=== PATIENT | female | born 1965 | race Caucasian/White ===

== ENCOUNTER 2017-12-26 19:47 | Emergency (ER) | payer OTHER ==
[~2017-12-26] VITALS: Ht 175.3 cm; Wt 113.4 kg
[2017-12-26] MEDS ORDERED: DIPHTH/TETANUS/ACEL. PERTUSSIS 0.5 ML SYR IM ONE (20:15)
[2017-12-26] MEDS ORDERED: IBUPROFEN 600 MG TAB PO STA (21:39)
[2017-12-26] MEDS ORDERED: ONDANSETRON HCL 4 MG ORAL DISINTEGRATING TAB PO ONE (21:45)
[2017-12-26] MEDS ORDERED: ACETAMINOPHEN 325 MG TAB PO ONE (21:45)
--- NOTE | 2017-12-26 22:23 | Diagnostic Imaging Report ---
FOOT 3 VIEW RT - HOPD, KNEE 4VW LT - HOPD Comparison: None Clinical history: Pain of the left knee and right foot after falling Findings: Right foot: No acute fracture or dislocation. Incidental plantar calcaneal spur. Left knee: Mild tricompartmental spurring. No acute fracture or dislocation. No joint effusion. Impression: No acute bony abnormality Signed by: Dr Vidhya Mendzoa MD on 12/26/2017 10:19 PM
--- NOTE | 2017-12-26 22:24 | Diagnostic Imaging Report ---
EXAMINATION: Head CT without contrast. HISTORY:Pain, after tripping and hitting head. COMPARISON:None. TECHNIQUE: Multidetector axial images were obtained from the foramen magnum to the vertex without contrast. The images were reconstructed using brain and bone algorithms. Thin section brain images were reformatted into coronal and sagittal planes. Dose modulation, iterative reconstruction, and/or weight based adjustment of the mA/kV was utilized to reduce the radiation dose to as low as reasonably achievable. Intravenous contrast: None IMAGE QUALITY: Suboptimal evaluation particularly of the skull base and posterior fossa structures due to dental amalgam and streak artifacts. FINDINGS: Skull/scalp: No lytic or blastic. lesions. No surgical changes. Parenchyma: Suboptimal evaluation particularly of the skull base and posterior fossa due to streak artifacts, despite the limitation no gross acute intracranial hemorrhage, mass or acute major vascular territorial infarct. Arteries: No density suggestive of thrombosis. Dural sinuses: No abnormal density suggestive of thrombosis. Ventricles: No hydrocephalus or displacement. Extra-axial spaces: No abnormal density. Brain volume: Mild generalized cerebral volume loss. Craniocervical junction: No mass, Chiari malformation, or basilar invagination. Sella: No mass. Paranasal/mastoid sinuses: Imaged portions unremarkable. IMPRESSION: Suboptimal evaluation particularly of the skull base and posterior fossa structures due to dental amalgam and streak artifacts, despite the limitations, no gross acute intracranial abnormality. Findings were informed to ER physician Dr. Ardon by phone at 9:30 PM on 12/26/2017. Signed by: Dr. Milka Tracey M.D. on 12/26/2017 10:20 PM
--- NOTE | 2017-12-26 22:27 | Diagnostic Imaging Report ---
History: Pain, status post fall. Comparison studies: None Technique: Axial images were obtained through the cervical region.. Coronal and sagittal images reconstructed from the axial data. Dose modulation, iterative reconstruction, and/or weight based adjustment of the mA/kV was utilized to reduce the radiation dose to as low as reasonably achievable. Intravenous contrast: None Findings: Fractures: None. Soft tissue injuries: None. Atlantoaxial articulation: Intact. Alignment: Normal lordosis. No scoliosis. Cervicomedullary junction: No abnormalities. The foramen magnum is patent. Soft tissues: No abnormalities. Vertebrae: No fractures, infection or neoplasm. Degenerative changes: None. IMPRESSION: 1. No acute cervical spine abnormalities. 2. Ligament, spinal cord and or vascular abnormalities cannot be excluded on the basis of this examination. 3. Findings informed to ER physician Dr. Ardon by phone at 9:30 PM on 12/26/2017. Signed by: Dr. Milka Tracey M.D. on 12/26/2017 10:23 PM
== END 2017-12-26 22:51 | disposition home or self-care (01) ==
LOC: FSED 19:47
DX: S01.01XA Laceration without foreign body of scalp, initial encounter (principal); S16.1XXA Strain of muscle, fascia and tendon at neck level, initial encounter; S80.212A Abrasion, left knee, initial encounter; S80.211A Abrasion, right knee, initial encounter; W01.0XXA Fall on same level from slipping, tripping and stumbling without subsequent striking against object, initial encounter; Y93.01 Activity, walking, marching and hiking; Y92.511 Restaurant or cafe as the place of occurrence of the external cause
CPT/HCPCS: 70450; 72125; 99283

== ENCOUNTER 2018-07-26 19:58 | Emergency (ER) | payer OTHER ==
[~2018-07-26] VITALS: Ht 175.3 cm; Wt 113.4 kg
--- OUTSIDE RECORDS SUMMARY | 2018-07-26 20:01 | XMS REPORT | Summary of Care ---
Author Author [facility] - [facility] Address Unknown Phone Unavailable Encounter JAMIA Vaz(FIN) [id number] Date(s): 10/06/17 - 10/06/17 [facility] [address] [place] [address]- Discharge Disposition: Home or Self Care Attending Physician: Leandro Ross MD Vital Signs No data available for this section Problem List Condition Effective Dates Status Health Status Informant DM (diabetes Resolved mellitus)(Confirmed) Asthma(Confirmed) Resolved HTN Resolved (hypertension)(Confi rmed) Allergies, Adverse Reactions, Alerts Substance Reaction Severity Status sulfa drugs Active tetracyclines Active codeine Active tetracycline Active erythromycin Active penicillin Active morphine Active aspirin Active Levaquin Active Vicodin Active codeine sulfate Active Medications No data available for this section Results No data available for this section Immunizations No data available for this section Procedures Procedure Date Related Diagnosis Body Site Status Caesarean section Completed section Completed Fine needle aspiration biopsy1 Completed Laparoscopic sleeve gastrectomy Completed Stapling of stomach Completed Tonsillectomy Completed Tonsillectomy and adenoidectomy Completed 1pt states since she has had this done she has difficulty swallowing at times Social History Social History Type Response Substance Abuse Use: None. Alcohol Never Smoking Status Never smoker; Exposure to Tobacco Smoke None; Cigarette Smoking Last 365 Days No; Reg Smoking Cessation Counseling No entered on: 09/17/17 Assessment and Plan No data available for this section
--- OUTSIDE RECORDS SUMMARY | 2018-07-26 20:01 | XMS REPORT ---
[facility] Address Unknown Phone Unavailable Care Team Providers Care Typing Office Worker Name Role Phone Zeke ARDON Unavailable Unavailable Problems This patient has no known problems. Allergies, Adverse Reactions, Alerts This patient has no known allergies or adverse reactions. Medications This patient has no known medications. Results Test Description Test Time Test Comments Text Results Atomic Results Result Comments CT C-SPINE W/O - HOPD 2017-12-26 22:20:00 [place] [address] Patient Name: ADWOA CLAUDIO MR #: [id number] : 1965 Age/Sex: 52/F Req #: [id number] Adm Physician: Ordered by: CARY ARDON MD Report #: [id number] Location: [facility] Room/Bed: Procedure: [id number] HOPD/CT C-SPINE W/O - HOPD Exam Date: 12/26/17 Exam Time: 2049 REPORT STATUS: Signed History: Pain, status post fall. Comparison studies: None Technique: Axial images were obtained through the cervical region.. Coronal and sagittal images reconstructed from the axial data. Dose modulation, iterative reconstruction, and/or weight based adjustment of the mA/kV was utilized to reduce the radiation dose to as low as reasonably achievable. Intravenous contrast: None Findings: Fractures: None. Soft tissue injuries: None. Atlantoaxial articulation: Intact. Alignment: Normal lordosis. No scoliosis. Cervicomedullary junction: No abnormalities. The foramen magnum is patent. Soft tissues: No abnormalities. Vertebrae: No fractures, infection or neoplasm. Degenerative changes: None. IMPRESSION: 1. No acute cervical spine abnormalities. 2. Ligament, spinal cord and or vascular abnormalities cannot be excluded on the basis of this examination. 3. Findings informed to ER physician Dr. Ardon by phone at 9:30 PM on 12/26/2017. Signed by: Dr. Milka Tracey M.D. on 12/26/2017 10:23 PM Dictated By: MILKA TRACEY MD 22 Transcribed By: ALICIA on 12/26/172222 COPY TO: CARY ARDON MD KNEE 4VW LT - HOPD 2017-12-26 22:17:00 [place] [address] Patient Name: ADWOA CLAUDIO MR #: [id number] : 1965 Age/Sex: 52/F Req #: [id number] Adm Physician: Ordered by: CARY ARDON MD Report #: [id number] Location: [facility] Room/Bed: Procedure: [id number] HOPD/KNEE 4VW LT - HOPD Exam Date: 12/26/17 Exam Time: 2049 REPORT STATUS: Signed FOOT 3 VIEW RT - HOPD, KNEE 4VW LT - HOPD Comparison: None Clinical history: Pain of the left knee and right foot after falling Findings: Right foot: No acute fracture or dislocation. Incidental plantar calcaneal spur. Left knee: Mild tricompartmental spurring. No acute fracture or dislocation. No joint effusion. Impression: No acute bony abnormality Signed by: Dr Jose Roberto Mendoza MD on 12/26/2017 10:19 PM Dictated By: JOSE ROBERTO MENDOZA MD 18 Transcribed By: ALICIA on 12/26/172218 COPY TO: CARY ARDON MD FOOT 3 VIEW RT - HOPD 2017-12-26 22:17:00 [place] [address] Patient Name: ADWOA CLAUDIO MR #: [id number] : 1965 Age/Sex: 52/F Req #: [id number] Adm Physician: Ordered by: CARY ARDON MD Report #: [id number] Location: [facility] Room/Bed: Procedure: [id number] HOPD/FOOT 3 VIEW RT - HOPD Exam Date: 12/26/17 Exam Time: 2049 REPORT STATUS: Signed FOOT 3 VIEW RT - HOPD, KNEE 4VW LT - HOPD Comparison: None Clinical history: Pain of the left knee and right foot after falling Findings: Right foot: No acute fracture or dislocation. Incidental plantar calcaneal spur. Left knee: Mild tricompartmental spurring. No acute fracture or dislocation. No joint effusion. Impression: No acute bony abnormality Signed by: Dr Jose Roberto Mendoza MD on 12/26/2017 10:19 PM Dictated By: JOSE ROBERTO MENDOZA MD 18 Transcribed By: ALICIA on 12/26/172218 COPY TO: CARY ARDON MD CT BRAIN WO-HOPD 2017-12-26 22:16:00 [facility] [address] [place] [address] Patient Name: ADWOA CLAUDIO MR #: [id number] : 1965 [facility]: 52[id number] Req #: [id number] Adm Physician: Ordered by: CARY ARDON MD Report #: [id number] Location: [facility] Room/Bed: Procedure: [id number] HOPD/CT BRAIN WO-HOPD Exam Date: 12/26/17 Exam Time: 2049 REPORT STATUS: Signed EXAMINATION: Head CT without contrast. HISTORY:Pain, after tripping and hitting head. COMPARISON:None. TECHNIQUE: Multidetector axial images were obtained from the foramen magnum to the vertex without contrast. The images were reconstructed using brain and bone algorithms. Thin section brain images were reformatted into coronal and sagittal planes. Dose modulation, iterative reconstruction, and/or weight based adjustment of the mA/kV was utilized to reduce the radiation dose to as low as reasonably achievable. Intravenous contrast: None IMAGE QUALITY: Suboptimal evaluation particularly of the skull base and posterior fossa structures due to dental amalgam and streak artifacts. FINDINGS: Skull/scalp: No lytic or blastic. lesions. No surgical changes. Parenchyma: Suboptimal evaluation particularly of the skull base and posterior fossa due to streak artifacts, despite the limitation no gross acute intracranial hemorrhage, mass or acute major vascular territorial infarct. Arteries: No density suggestive of thrombosis. Dural sinuses: No abnormal density suggestive of thrombosis. Ventricles: No hydrocephalus or displacement. Extra-axial spaces: No abnormal density. Brain volume: Mild generalized cerebral volume loss. Craniocervical junction: No mass, Chiari malformation, or basilar invagination. Sella: No mass. Paranasal/mastoid sinuses: Imaged portions unremarkable. IMPRESSION: Suboptimal evaluation particularly of the skull base and posterior fossa structures due to dental amalgam and streak artifacts, despite the limitations, no gross acute intracranial abnormality. Findings were informed to ER physician Dr. Ardon by phone at 9:30 PM on 12/26/2017. Signed by: Dr. Milka Tracey M.D. on 12/26/2017 10:20 PM Dictated By: MILKA TRACEY MD 19 Transcribed By: ALICIA on 12/26/172219 COPY TO: CARY ARDON MD
--- OUTSIDE RECORDS SUMMARY | 2018-07-26 20:01 | XMS REPORT | Summary of Care ---
Author Author [facility] Organization [facility] Address Unknown Phone Unavailable Encounter JAMIA Vaz(TOMASZ) [id number] Date(s): 06/02/18 - 06/02/18 [facility] [address] [facility] [address] [place] [address] [facility] [phone] Discharge Disposition: Home or Self Care Attending Physician: Manohar Grijalva MD Referring Physician: Manohar Grijalva MD Vital Signs Most recent to 1 oldest [Reference Range]: Height 175.26 cm (06/02/18 12:02 PM) Blood Pressure 122/79 mmHg [90-140/60-90 mmHg] (06/02/18 12:02 PM) Respiratory Rate 16 BRMIN [14-20 BRMIN] (06/02/18 12:02 PM) Peripheral Pulse 86 bpm Rate [60-100 bpm] (06/02/18 12:02 PM) Weight 113.636 kg (06/02/18 12:02 PM) Body Mass Index 37 m2 (06/02/18 12:02 PM) Problem List Condition Effective Dates Status Health Status Informant Hernia of abdominal Active wall(Confirmed) HLD Active (hyperlipidemia)(Con firmed) Asthma(Confirmed) Active HTN Active (hypertension)(Confi rmed) Hypothyroidism(Confi Active rmed) Elevated Active LFTs(Confirmed) Morbid Active obesity(Confirmed) Nausea & Active vomiting(Confirmed) Papillary thyroid Active carcinoma(Confirmed) DM (diabetes Active mellitus), type 2(Confirmed) Allergies, Adverse Reactions, Alerts Substance Reaction Severity Status sulfa drugs Active tetracyclines Active codeine Active tetracycline Active erythromycin Active penicillin Active morphine Active aspirin Active Levaquin Active Vicodin Active codeine sulfate Active Medications No Known Medications Results ELECTROLYTES Most recent to 1 oldest [Reference Range]: Sodium Lvl [135-145 136 mEq/L mEq/L] (06/02/18 1:30 PM) Potassium Lvl 3.9 mEq/L [3.5-5.1 mEq/L] (06/02/18 1:30 PM) Chloride Lvl [95-109 100 mEq/L mEq/L] (06/02/18 1:30 PM) CO2 [24-32 mEq/L] 26 mEq/L (06/02/18 1:30 PM) AGAP [10.0-20.0 13.9 mEq/L mEq/L] (06/02/18 1:30 PM) CHEM PANEL Most recent to 1 oldest [Reference Range]: Creatinine Lvl 0.64 mg/dL [0.50-1.40 mg/dL] (06/02/18 1:30 PM) eGFR 105 mL/min/1.73m2 1 *NA* (06/02/18 1:30 PM) BUN [7-22 mg/dL] 16 mg/dL (06/02/18 1:30 PM) Glucose Lvl [70-99 123 mg/dL mg/dL] *HI* (06/02/18 1:30 PM) Total Protein 8.6 g/dL [6.4-8.4 g/dL] *HI* (06/02/18 1:30 PM) Albumin Lvl [3.5-5.0 4.0 g/dL g/dL] (06/02/18 1:30 PM) Globulin [2.7-4.2 4.6 g/dL g/dL] *HI* (06/02/18 1:30 PM) A/G Ratio [0.7-1.6] 0.9 (06/02/18 1:30 PM) Calcium Lvl 9.7 mg/dL [8.5-10.5 mg/dL] (06/02/18 1:30 PM) ALT [0-65 unit/L] 77 unit/L *HI* (06/02/18 1:30 PM) AST [0-37 unit/L] 57 unit/L *HI* (06/02/18 1:30 PM) Alk Phos [39-136 109 unit/L unit/L] (06/02/18 1:30 PM) Bili Total [0.2-1.3 0.4 mg/dL mg/dL] (06/02/18 1:30 PM) Bili Direct [0.0-0.3 0.1 mg/dL mg/dL] (06/02/18 1:30 PM) Bili Indirect 0.3 mg/dL [0.0-1.0 mg/dL] (06/02/18 1:30 PM) 1Result Comment: The eGFR is calculated using the CKD-EPI formula. In most young, healthy individuals the eGFR will be >90 mL/min/1.73m2. The eGFR declines with age. An eGFR of 60-89 may be normal in some populations, particularly the elderly, for whom the CKD-EPI formula has not been extensively validated. Use of the eGFR is not recommended in the following populations: Individuals with unstable creatinine concentrations, including patients and those with serious co-morbid conditions. Patients with extremes in muscle mass or diet. The data above are obtained from the National Kidney Disease Education Program ( NKDEP) which additionally recommends that when the eGFR is used in patients with extremes of body mass index for purposes of drug dosing, the eGFR should be mul tiplied by the estimated BMI. HEMATOLOGY Most recent to 1 oldest [Reference Range]: WBC [3.7-10.4 K/CMM] 9.0 K/CMM (06/02/18 1:30 PM) RBC [4.20-5.40 5.25 M/CMM M/CMM] (06/02/18 1:30 PM) Hgb [12.0-16.0 g/dL] 14.5 g/dL (06/02/18 1:30 PM) Hct [36.0-48.0 %] 44.1 % (06/02/18 1:30 PM) MCV [80.0-98.0 fL] 84.0 fL (06/02/18 1:30 PM) MCH [27.0-31.0 pg] 27.7 pg (06/02/18 1:30 PM) MCHC [32.0-36.0 32.9 g/dL g/dL] (06/02/18 1:30 PM) RDW [11.5-14.5 %] 15.1 % *HI* (06/02/18 1:30 PM) MPV [7.4-10.4 fL] 8.9 fL (06/02/18 1:30 PM) Platelet [133-450 270 K/CMM K/CMM] (06/02/18 1:30 PM) Segs [45.0-75.0 %] 59.1 % (06/02/18 1:30 PM) Lymphocytes 35.1 % [20.0-40.0 %] (06/02/18 1:30 PM) Monocytes [2.0-12.0 4.1 % %] (06/02/18 1:30 PM) Eosinophils [0.0-4.0 1.1 % %] (06/02/18 1:30 PM) Basophils [0.0-1.0 0.6 % %] (06/02/18 1:30 PM) Neutrophils # 5.3 K/CMM [1.5-8.1 K/CMM] (06/02/18 1:30 PM) Lymphocytes # 3.2 K/CMM [1.0-5.5 K/CMM] (06/02/18 1:30 PM) Monocytes # [0.0-0.8 0.4 K/CMM K/CMM] (06/02/18 1:30 PM) Eosinophils # 0.1 K/CMM [0.0-0.5 K/CMM] (06/02/18 1:30 PM) Basophils # [0.0-0.2 0.1 K/CMM K/CMM] (06/02/18 1:30 PM) PT [12.0-14.7 12.9 seconds seconds] (06/02/18 1:30 PM) INR [0.85-1.17] 0.99 (06/02/18 1:30 PM) TUMOR MARKERS Most recent to 1 oldest [Reference Range]: AFP TM [0.0-11.0 2.6 ng/mL ng/mL] (06/02/18 1:30 PM) Immunizations No data available for this section [...] Reg Smoking Cessation Counseling No entered on: 06/02/18 Assessment and Plan No data available for this section
--- OUTSIDE RECORDS SUMMARY | 2018-07-26 20:01 | XMS REPORT | Continuity of Care Document ---
Author Author Derrek corbett [facility] Interface Address Unknown Phone Unavailable Problems Problem Status Onset Date Classification Date Reported Comments Source OUTPATIENT/TRANSJUGULAR LIVER BX WITH HV Active 03/16/2018 [facility] BDDC/ NAUSEA VOMITING COLORECTAL CANCER Active 03/03/2018 [facility] NEW PT CONSULT Active 02/04/2018 [facility] C73 - MALIGNANT NEOPLASM OF THYROID Active 10/01/2017 ADAMA Corbett THYROID NODULE Active 08/04/2017 [facility] DM (<span ID="[id number]">Confirmed</span>) Resolved Problem 10/09/2017 ADAMA Jones Hernia [facility] abdominal wall [facility] (<span ID="[id number]">Confirmed</span>) [facility] Problem 07/12/2018 ADAMA Jones ADAMA Corbett HTN (<span ID="[id number]">Confirmed</span>) Active Problem 07/12/2018 ADAMA Jones ADAMA Corbett Hypothy[facility] Morbid obesity [facility] Nausea & vomiting Active Problem 07/12[facility] Papillary thyroid carcinoma [facility] , type 2(<span ID="[id number]">Confirmed</span>) Active Problem 07/12[facility]2018 [facility] (<span ID="[id number]">Confirmed</span>) Active Problem [facility]/04[facility] Medications Medication Details Route Status Patient Instructions Ordering Provider Order Date Source Allergies, Adverse Reactions, Alerts Substance Category Reaction Severity Reaction type Status Date Reported Comments Source Tetracyclines Unknown Allergy to Substance Active 12/26/2017 [facility] Sulfa (Sulfonamide Antibiotics) Unknown Allergy to Substance Active 12/26/2017 [facility] Morphine Unknown Allergy to Substance Active 12/26/2017 [facility] Codeine Unknown Allergy to Substance Active 12/26/2017 [facility] Erythromycin base Unknown Allergy to Substance Active 12/26/2017 [facility] Levofloxacin Unknown Allergy to Substance Active 12/26/2017 [facility] sulfa drugs Assertion Drug allergy Active [facility] tetracyclines Assertion Drug allergy Active [facility] codeine Assertion Drug allergy Active [facility] tetracycline Assertion Drug allergy Active [facility] [place] erythromycin Assertion Drug allergy Active [facility] [place] penicillin Assertion Drug allergy Active [facility] morphine Assertion Drug allergy Active [facility] aspirin Assertion Drug allergy Active [facility] [place] Levaquin Assertion Drug allergy Active [facility] [place] Vicodin Assertion Drug allergy Active [facility] [place] codeine sulfate Assertion Drug allergy Active [facility] [place] Immunizations Immunization Date Given Site Status Last Updated Comments Source Results Order Name Results Value Reference Range Date Interpretation Comments Source CHEM PANEL ALT 77 unit/L 0 - 65 06/02/2018 [facility] CHEM PANEL Alk Phos 109 unit/L 39 - 136 06/02/2018 [facility] CHEM PANEL AST 57 unit/L 0 - 37 06/02/2018 [facility] CHEM PANEL Bili Direct 0.1 mg/dL 0.0 - 0.3 06/02/2018 [facility] CHEM PANEL Bili Total 0.4 mg/dL 0.2 - 1.3 06/02/2018 [facility] CHEM PANEL Bili Indirect 0.3 mg/dL 0.0 - 1.0 06/02/2018 [facility] CHEM PANEL Albumin Lvl 4.0 g/dL 3.5 - 5.0 06/02/2018 [facility] CHEM PANEL Total Protein 8.6 g/dL 6.4 - 8.4 06/02/2018 [facility] CHEM PANEL Globulin 4.6 g/dL 2.7 - 4.2 06/02/2018 [facility] CHEM PANEL A/G Ratio 0.9 0.7 - 1.6 06/02/2018 [facility] ELECTROLYTES AGAP 13.9 meq/L 10.0 - 20.0 06/02/2018 [facility] ELECTROLYTES eGFR 105 mL/min/1.73m2 06/02/2018 Result Comment: The eGFR is calculated using the [...] from the National Kidney Disease Education Program (NKDEP) which additionally recommends that when the eGFR is used in patients with extremes of body mass index for purposes of drug dosing, the eGFR should be multiplied by the estimated BMI. [facility] ELECTROLYTES Calcium Lvl 9.7 mg/dL 8.5 - 10.5 06/02/2018 [facility] ELECTROLYTES CO2 26 meq/L 24 - 32 06/02/2018 [facility] ELECTROLYTES Chloride Lvl 100 meq/L 95 - 109 06/02/2018 [facility] ELECTROLYTES Potassium Lvl 3.9 meq/L 3.5 - 5.1 06/02/2018 [facility] ELECTROLYTES Creatinine Lvl 0.64 mg/dL 0.50 - 1.40 06/02/2018 [facility] ELECTROLYTES Sodium Lvl 136 meq/L 135 - 145 06/02/2018 [facility] ELECTROLYTES BUN 16 mg/dL 7 - 22 06/02/2018 [facility] ELECTROLYTES Glucose Lvl 123 mg/dL 70 - 99 06/02/2018 [facility] HEMATOLOGY Monocytes # 0.4 K/CMM 0.0 - 0.8 06/02/2018 [facility] HEMATOLOGY Basophils # 0.1 K/CMM 0.0 - 0.2 06/02/2018 [facility] HEMATOLOGY Eosinophils # 0.1 K/CMM 0.0 - 0.5 06/02/2018 [facility] HEMATOLOGY Lymphocytes # 3.2 K/CMM 1.0 - 5.5 06/02/2018 [facility] HEMATOLOGY Eosinophils 1.1 % 0.0 - 4.0 06/02/2018 [facility] HEMATOLOGY Neutrophils # 5.3 K/CMM 1.5 - 8.1 06/02/2018 [facility] HEMATOLOGY Basophils 0.6 % 0.0 - 1.0 06/02/2018 [facility] HEMATOLOGY Monocytes 4.1 % 2.0 - 12.0 06/02/2018 [facility] HEMATOLOGY Segs 59.1 % 45.0 - 75.0 06/02/2018 [facility] HEMATOLOGY Lymphocytes 35.1 % 20.0 - 40.0 06/02/2018 [facility] HEMATOLOGY INR 0.99 0.85 - 1.17 06/02/2018 [facility] HEMATOLOGY PT 12.9 s 12.0 - 14.7 06/02/2018 [facility] HEMATOLOGY MCHC 32.9 g/dL 32.0 - 36.0 06/02/2018 [facility] HEMATOLOGY RDW 15.1 % 11.5 - 14.5 06/02/2018 [facility] HEMATOLOGY MPV 8.9 fL 7.4 - 10.4 06/02/2018 [facility] HEMATOLOGY Platelet 270 K/CMM 133 - 450 06/02/2018 [facility] HEMATOLOGY MCV 84.0 fL 80.0 - 98.0 06/02/2018 [facility] HEMATOLOGY MCH 27.7 pg 27.0 - 31.0 06/02/2018 [facility] HEMATOLOGY Hct 44.1 % 36.0 - 48.0 06/02/2018 [facility] HEMATOLOGY Hgb 14.5 g/dL 12.0 - 16.0 06/02/2018 [facility] HEMATOLOGY RBC 5.25 M/CMM 4.20 - 5.40 06/02/2018 [facility] HEMATOLOGY WBC 9.0 K/CMM 3.7 - 10.4 06/02/2018 [facility] TUMOR MARKERS AFP 2.6 ng/mL 0.0 - 11.0 06/02/2018 [facility] Liver w Elastography US Liver w Elastography US EXAM: US LIVER EXAM: US ELASTOGRAPHY DATE: 03/27/2018 12:56 CARE MANAGEMENT ASSOCIATE INDICATION: elevated enzymes - elevated enzymes ADDITIONAL INFORMATION: None. COMPARISON: None. TECHNIQUE: Multiplanar grayscale, color Doppler ultrasound images of the liver and upper abdomen. Elastography of the liver was also performed. FINDINGS: Ultrasound: Liver: Craniocaudal length: 20 cm. Enlarged. Echogenicity: Coarsened and increased. Surface nodularity: Minimal micronodularity. Mass (size and location): None. Portal vein: 1 cm, normal caliber, hepatopedal flow. Bile ducts: Common bile duct diameter: 0.24 cm. Intrahepatic ducts: Normal. Gallbladder: Contracted. Gallstones: None. Gallbladder sludge: Small amount present. Gallbladder wall: 0.3 cm. Upper limit of normal in caliber. Pericholecystic fluid: None. Sonographic Steel sign: Absent. Pancreas: Proximal body and neck partially seen. Spleen: Craniocaudal length: 14 cm. Enlarged. Mass or focal lesion (size and location): None. IVC: Visualized portions are normal caliber. Ascites: None. Elastography: Ten samples from the liver were obtained. The average liver stiffness is 18.23 kPa with a standard deviation of 2.17 kPa. Metavir Score F0=2 - 4.5 kPa Normal F0-F1=4.5 - 5.7 kPa Normal-Mild F2-F3=5.7 - 12 kPa Mild-Moderate F3-F4=12 - 21 kPa Moderate-Severe F4=> 21 kPa Severe IMPRESSION: * Hepatomegaly with minimal contour nodularity may indicate early cirrhosis with underlying parenchymal disease and fatty infiltration. No focal hepatic lesions. * Metavir score of F3-F4, moderate to severe fibrosis. * Contracted gallbladder with sludge. 03/27/2018 - - Read by: Glenn Fournier MD Dictated Date/time: 03/27/18 13:48 Electronically Signed by: Glenn Fournier MD 03/27/18 13:55 FINAL REPORT ADAMA Corbett Biopsy through a catheter VR Biopsy through a catheter VR PROCEDURE: Transjugular liver biopsy with pressure measurements Procedural Personnel Attending physician(s): Janeen Anaya MD Fellow physician(s): Alexander Ingram MD Resident physician(s): None Advanced practice provider(s): None Pre-procedure diagnosis: Elevated liver enzymes Post-procedure diagnosis: Same Indication: Elevated liver enzymes Additional clinical history: None Complications: No immediate complications. IMPRESSION: Transjugular liver biopsy with 18g core biopsy samples obtained. The corrected sinusoidal pressure (wedged hepatic vein pressure minus free hepatic vein pressure) is 10 mmHg. Plan: Specimens sent for evaluation. PROCEDURE SUMMARY: - Venous access with ultrasound guidance - Hepatic venography - Pressure measurements - Transjugular liver biopsy with fluoroscopic guidance - Additional procedure(s): IVC cavogram PROCEDURE DETAILS: Pre-procedure Consent: Informed consent for the procedure including risks, benefits and alternatives was obtained and time-out was performed prior to the procedure. Preparation: The site was prepared and draped using maximal sterile barrier technique including cutaneous antisepsis. Anesthesia/sedation Level of anesthesia/sedation: Moderate sedation (conscious sedation) Anesthesia/sedation administered by: Independent trained observer under attending supervision with continuous monitoring of the patient's level of consciousness and physiologic status Total intra-service sedation time (minutes): 45 Access Local anesthesia was administered. The vessel was sonographically evaluated and determined to be patent. Real time ultrasound was used to visualize needle entry into the vessel and a permanent image store in the patient chart. A 10F sheath was placed. Vein accessed: Right internal jugular vein Access technique: US Venography Vein catheterized: Right hepatic vein Indication for venography: Document catheter position Findings: Conventional hepatic venous anatomy Pressure measurements Pressure measurements were obtained via the 10F sheath and a 5F balloon occlusion catheter. Mean right atrial pressure (mmHg): 4 Mean free hepatic vein pressure (mmHg): 15 Mean wedged hepatic vein pressure (mmHg): 25 Biopsy Samples were obtained of the liver parenchyma from the hepatic vein using the transjugular liver biopsy set. Core needle biopsy device: The ExtraordinariesAB transjugular biopsy system Core needle size (gauge): 18 Number of core specimens: 3 Closure The sheath was removed and hemostasis was achieved with manual compression. A sterile bandage was applied. Contrast Contrast agent: Omnipaque Contrast volume (mL): 70 Radiation Dose Fluoroscopy time (min): 12.4 Dose (mGy): 420 Additional Details Additional description of procedure: None Equipment details: None Specimens removed: Biopsy samples as detailed above Estimated blood loss (mL): Less than 10 Standardized report: [email or web address] Attestation Signer name: Janeen Anaya MD I attest that I was present for the entire procedure. I reviewed the stored images and agree with the report as written. 03/19/2018 - - This report was dictated by a Polishing Machine Operator Helper/Fellow/Physician Structural Steel Worker Apprentice. I have personally reviewed the images as well as the interpretation and agree with the findings. Read by: Alexander Ingram MD Resident/Fellow/Physician Structural Steel Worker Apprentice: Alexander Ingram MD Dictated Date/time: 03/19/18 11:49 Electronically Signed by: Janeen Anaya MD 03/21/18 10:50 FINAL REPORT [facility] Vital Signs Vital Sign Value Date Comments Source Height 175.26 cm 06/02/2018 [facility] Weight 113.636 06/02/2018 [facility] BMI Calculated 37 06/02/2018 [facility] Heart Rate 86 06/02/2018 [facility] Respitory Rate 16 06/02/2018 [facility] Systolic (mm Hg) 122 06/02/2018 [facility] Diastolic (mm Hg) 79 06/02/2018 [facility] Encounters Location Location Details Encounter Type Encounter Number Reason For Visit Attending Provider ADM Date DC Date Status Source [facility] [place] [facility] [id number] Leandro Ross 10/06/2017 10/07/2017 ADAMA Jones [facility] [place] [facility] [id number] Olvin Ross 12/23/2017 12/23/2017 ADAMA Corbett Departed Emergency Room [id number] CARY CASTILLO MD 12/26/2017 12/26/2017 [facility] [id number] Manohar Grijalva 06/02/2018 06/03/2018 [facility] Procedures Procedure Code Date Perfomer Comments Source Caesarean section [id number] ADAMA Jones section [id number] ADAMA Jones Fine needle aspiration biopsy<sup>1</sup> [id number] pt states since she has had this done she has difficulty swallowing at times [facility] Laparoscopic sleeve gastrectomy [id number] [facility] Stapling of stomach [id number] [facility] Tonsillectomy [id number] [facility] Tonsillectomy and adenoidectomy [id number] [facility] Caesarean section [id number] [facility] [place] section [id number] [facility] [place] Fine needle aspiration biopsy<sup>1</sup> 92397091 pt states since she has had this done she has difficulty swallowing at times [facility] [place] Laparoscopic sleeve gastrectomy [id number] [facility] Stapling of stomach [id number] [facility] [place] Tonsillectomy [id number] [facility] Tonsillectomy and adenoidectomy 05089531 [facility] [place] Caesarean section [id number] [facility] section [id number] [facility] Fine needle aspiration biopsy<sup>1</sup> 62585202 pt states since she has had this done she has difficulty swallowing at times [facility] Laparoscopic sleeve gastrectomy [id number] [facility] Stapling of stomach [id number] [facility] Tonsillectomy [id number] [facility] Tonsillectomy and adenoidectomy [id number] [facility]
--- OUTSIDE RECORDS SUMMARY | 2018-07-26 20:01 | XMS REPORT | Summary of Care ---
Author Author [facility] Organization [facility] Address Unknown Phone Unavailable Encounter [facility] Татьяна(FIN) [id number] Date(s): 12/23/17 - 12/23/17 [facility] [address] [place] [phone] Attending Physician: Olvin Ross MD Referring Physician: Olvin Ross MD Vital Signs No data available [...]
== END 2018-07-26 22:08 | disposition home or self-care (01) ==
LOC: FSED 19:58
DX: J02.9 Acute pharyngitis, unspecified (principal); I10 Essential (primary) hypertension; E11.9 Type 2 diabetes mellitus without complications; Z87.19 Personal history of other diseases of the digestive system; Z85.850 Personal history of malignant neoplasm of thyroid
CPT/HCPCS: 83518; 87400; 99283

== ENCOUNTER 2019-03-01 19:39 | Emergency (ER) | payer OTHER ==
[~2019-03-01] VITALS: Ht 175.3 cm; Wt 95.3 kg
--- OUTSIDE RECORDS SUMMARY | 2019-03-01 19:42 | XMS REPORT | Summary of Care ---
Author Author TRACE Dalton, GEORGE Organization Unknown Address Unknown Phone Unavailable Care Team Providers Care Cyber Security Consultant Name Role Phone TRACE Dalton, GEORGE Unavailable Unavailable FERNANDO Dalton, CELINA Unavailable Unavailable INGRID Dalton, MARY Unavailable Unavailable GARRETT Dalton, RUSSIAN Unavailable Unavailable CHEVY Dalton, ARACELIS Unavailable Unavailable Chito GE, Renetta Unavailable Unavailable DARRYN HILLS MD Unavailable Unavailable Chevy GE, Aracelis Unavailable Unavailable CHITO Dalton, RENETTA Unavailable Unavailable Rudi GE, Manohar Unavailable Unavailable TRACE GE, GEORGE Unavailable Unavailable Unavailable Unavailable Functional Status Name Dates Details Functional status health issues are not documented Status: Name Dates Details Cognitive status health issues are not documented Status: Problems Name Dates Details Special DrLeelee Services Analysis Of Computerized Data Status: Active Family history of History of hypertension (V12.59, Z86.79) Status: Resolved Thyromegaly (240.9, E01.0) Status: Active Seasonal allergic rhinitis, unspecified allergic rhinitis trigger Status: Active Sinusitis (473.9, J32.9) Status: Active Flu (487.1, J11.1) Status: Active Flu-like symptoms (780.99, R68.89) Status: Active Status post surgery (V45.89, Z98.890) Status: Active 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, 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 Poorly controlled type 2 diabetes mellitus (250.00, E11.65) Status: Active Encounter for staple removal (V58.32, Z48.02) Status: Active Accidental fall, subsequent encounter (W19.XXXD) Status: Active Neuropathy (355.9, G62.9) Status: Active Fatigue (780.79, R53.83) Status: Active Thyroid nodule (241.0, E04.1) Status: Active Abnormal LFTs (790.6, R94.5) Status: Active Nausea and/or vomiting (787.01, R11.2) Status: Active Major depressive disorder, recurrent episode with anxious distress (296.30, F33.9) Status: Active 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, C73) Status: Active Allergic rhinitis (477.9, J30.9) Status: Active Vaginal candidiasis (112.1, B37.3) Status: Active Postoperative hypothyroidism (244.0, E89.0) Status: Active Asthma (493.90, J45.909) Status: Active Allergic conjunctivitis (372.14, H10.10) Status: Active Menopause (627.2, Z78.0) Status: Active Candidiasis, cutaneous (112.3, B37.2) Status: Active Rosacea (695.3, L71.9) Status: Active Diabetes mellitus (250.00, E11.9) Status: Active Class 2 obesity with body mass index (BMI) of 35.0 to 35.9 in adult (278.00, E66.9) Status: Active Essential hypertension (401.9, I10) Status: Active GERD (gastroesophageal reflux disease) (530.81, K21.9) Status: Active Hyperlipidemia (272.4, E78.5) Status: Active Hypothyroidism (244.9, E03.9) Status: Active Ventral hernia without obstruction or gangrene (553.20, K43.9) Status: Active Liver cirrhosis secondary to ECKERT (571.8, K75.81) Status: Active Fatty liver (571.8, K76.0) Status: Active Medications Name Dates Details Lisinopril 10 MG Oral Tablet TAKE 1 TABLET DAILY DIRECTED. Quantity: 90 GARRETT Dalton, RUSSIAN * Start : 16-Aug-2016 Active metFORMIN HCl ER 500 MG Oral Tablet Extended Release 24 Hour TAKE TWO TABLETS BY MOUTH TWICE DAILY WITH MEALS * Quantity: 360 Refills: 3 GARRETT Dalton, RUSSIAN * Start : 19-Aug-2016 Active Atorvastatin Calcium 40 MG Oral Tablet TAKE 1 TABLET AT BEDTIME. * Quantity: 90 Refills: 3 GARRETT Dalton, RUSSIAN * Start : 02-Oct-2016 Active Loratadine 10 MG Oral Tablet TAKE 1 TABLET DAILY. * Quantity: 90 Refills: 1 CELINA KING M.D. * Start : 02-Oct-2016 Active NovoLOG FlexPen 100 UNIT/ML Subcutaneous Solution Pen-injector INJECT 15 UNITS BEFORE BREAKFAST, LUNCH, DINNER. * Quantity: 2 Refills: 3 NAPOLEON TUCKER M.D. * Start : 11-Nov-2016 Active 5 x 3 ML Pen Ketone Test In Vitro Strip USE NEEDED WHEN BLOOD SUGAR GREATER THAN 300MG/DL * Quantity: 2 Refills: 0 NAPOLEON TUCKER M.D. * Start : 12-Nov-2016 Active 50 Strip Box Escitalopram Oxalate 10 MG Oral Tablet TAKE 1 TABLET DAILY. * Quantity: 90 Refills: 3 NAPOLEON TUCKER M.D. * Start : 02-Jan-2017 Active OneTouch Verio In Vitro Strip use up to 5 times daily as directed * Quantity: 5 Refills: 3 ARACELIS MAJANO M.D. * Start : 19-Mar-2017 Active 100 Strip Box OneTouch Delica Lancets Fine USE DIRECTED. * Quantity: 4 Refills: 3 RAACELIS MAJANO M.D. * Start : 06-Oct-2017 Active 100 Unit Box Promethazine HCl - 12.5 MG Oral Tablet TAKE 1-2 TABLETS BY MOUTH EVERY 8 HOURS, NEEDED NAUSEA * Quantity: 1 Refills: 1 ARACELIS MAJANO M.D. * Start : 29-Jan-2018 Active 100 Tablet Bottle BD Pen Needle Mini U/F 31G X 5 MM USE DIRECTED. * Quantity: 5 Refills: 3 ARACELIS MAJANO M.D. * Start : 06-Oct-2017 Active 100 Unit Box Olopatadine HCl - 0.1 % Ophthalmic Solution INSTILL 1 DROP INTO BOTH EYES TWICE DAILY AT 6-8 HOUR INTERVALS. * Quantity: 1 Refills: 0 MARY QUINTERO M.D. * Start : 29-Jul-2018 Active 5 ML Bottle Premarin 0.625 MG/GM Vaginal Cream APPLY A PEA-SIZED AMOUNT TO VAGINAL OPENING 3 TO 4 TIMES PER WEEK. * Quantity: 1 Refills: 1 NAPOLEON TUCKER M.D. * Start : 17-Sep-2018 Active 30 GM Tube Levothyroxine Sodium 100 MCG Oral Tablet TAKE 1 TABLET DAILY DIRECTED. * Quantity: 90 Refills: 3 NAPOLEON TUCKER M.D. Active Fluticasone Propionate 50 MCG/ACT Nasal Suspension USE 1 TO 2 SPRAYS IN EACH NOSTRIL ONCE DAILY. * Quantity: 1 Refills: 5 NAPOLEON TUCKER M.D. * Start : 26-Jun-2018 Active 16 GM Bottle Gabapentin 300 MG Oral Capsule TAKE 1 CAPSULE BEDTIME and advance to 2-3 tabs at bedtime as tolerated * Quantity: 270 Refills: 3 NAPOLEON TUCKER M.D. * Start : 02-Feb-2018 Active Ondansetron 4 MG Oral Tablet Disintegrating TAKE 1 TABLET Every twelve hours PRN nausea * Quantity: 90 Refills: 3 NAPOLEON TUCKER M.D. * Start : 11-Feb-2018 Active Pantoprazole Sodium 40 MG Oral Tablet Delayed Release TAKE 1 TABLET DAILY. * Quantity: 90 Refills: 1 NAPOLEON TUCKER M.D. * Start : 20-May-2018 Active Fluconazole 200 MG Oral Tablet TAKE 1 TABLET 1 TIME ONLY as needed for yeast infection, may repeat in 3 days fo r perisistent symptoms. * Quantity: 6 Refills: 1 NAPOLEON TUCKER M.D. * Start : 01-Jul-2018 Active Mirvaso 0.33 % External Gel Apply smoothly and evenly as a thin layer across the entire face (central forehe ad, each cheek, nose, and chin) avoiding the eyes and lips. * Quantity: 1 Refills: 0 NAPOLEON TUCKER M.D. * Start : 17-Sep-2018 Active 30 GM Pump Btl Nystatin 909833 UNIT/GM External Powder APPLY SPARINGLY TO AFFECTED AREA(S) TWICE DAILY * Quantity: 1 Refills: 0 ARACELIS MAJANO M.D. * Start : 28-Dec-2018 Active 30 GM Bottle Allergies and Adverse Reactions Name Dates Details codeine (Allergy) Status: Active erythromycin (Allergy) Status: Active heparin (Allergy) Status: Active Levaquin (Allergy) Status: Active morphine (Allergy) Status: Active Penicillins (Allergy) Status: Active Sulfa Drugs (Allergy) Status: Active Tetracyclines (Allergy) Status: Active Vicodin TABS (Allergy) Status: Active Past Medical History Name Dates Details History of Diabetes mellitus type 2, uncontrolled (250.02, E11.65) Status: Resolved History of Diabetes mellitus, type 2 (250.00, E11.9) Status: Resolved History of hemorrhoids (V13.89, Z87.19) Status: Resolved History of hypertension (V12.59, Z86.79) Status: Resolved History of Irregular menses (626.4, N92.6) Status: Resolved History of Lipids abnormal (272.9, E78.89) Status: Resolved History of obesity (V12.29, Z86.39) Status: Resolved Procedures Procedure Dates Details History of Section Completed History of Stomach surgery Completed History of Tonsillectomy Completed History of Gastroplasty vertical banded Completed History of Colonoscopy Completed History of Ventral hernia repair Completed Immunization Name Dates Details Immunizations not documented Family History Name Dates Details Family history of hyperlipidemia (V18.19, Z83.438) Status: Active Name Dates Details Family history of hyperlipidemia (V18.19, Z83.438) Status: Active Social History Name Dates Details - Status: Name Dates Details Never smoker Vital Signs Date Test Result Details :14 BP Systolic 117 mm[Hg] Status: Comments: Location: LUE; Position: Sitting BP Diastolic 60 mm[Hg] Status: Comments: Location: LUE; Position: Sitting Height 69 in Status: Weight 237.25 lb Status: Body Mass Index Calculated 35.04 kg/m2 Status: Body Surface Area Calculated 2.22 m2 Status: Temperature 97.2 f Status: Comments: Method: Oral Heart Rate 76 /min Status: [id number] BP Systolic 109 mm[Hg] Status: Comments: Location: LUE; Position: Sitting BP Diastolic 74 mm[Hg] Status: Comments: Location: LUE; Position: Sitting Height 69 in Status: Weight 236.4 lb Status: Body Mass Index Calculated 34.91 kg/m2 Status: Body Surface Area Calculated 2.22 m2 Status: Temperature 97.6 f Status: Comments: Method: Oral Heart Rate 80 /min Status: Comments: Location: L Brachial Artery; Respiration Rate 20 /min Status: Physical Findings 0 Status: Comments: Alcohol Screen - How many times in the past yr have you had 5 (for M) or 4 (for F) or 4 (for all > 65yrs) or more drinks in a day? :26 BP Systolic 129 mm[Hg] Status: Comments: Location: LUE; Position: Sitting BP Diastolic 77 mm[Hg] Status: Comments: Location: LUE; Position: Sitting Height 69 in Status: Weight 244.25 lb Status: Body Mass Index Calculated 36.07 kg/m2 Status: Body Surface Area Calculated 2.25 m2 Status: Temperature 97.2 f Status: Comments: Method: Oral Heart Rate 72 /min Status: Results Date Description Value Details [id number] [O] Hemoglobin A1c (in office) HEMOGLOBIN A1c 7.1 (Above high threshold) [id number]:33 Glucose (Point of Care In Office) Glucose POC Lifescan 147 (Above high threshold) 05-Nov-20185:00 Negative Retinal Eye Exam (Diabetic) Negative Diabetic Eye Screening [id number] Plan of Care Name Dates Details Planned Observations Planned Goals not documented Planned Encounters Appointment; GEORGE WOODWARD M.D. On: 02-Feb-2019 14:15 Appointment; ARACELIS MAJANO M.D. On: 16-Apr-2019 11:15 Interventions Provided Plan* - No restrictions * - Advance to regular diet. * - Discontinue insulin. * - Stay hydrated * - Return to clinic in 5 weeks. * ADWOA BOBO is a 53 year old female with severe morbid obesity presenting today to be evaluated for possible surgery. She has a central obesity with a duration greater than 5 years and meets NIH criteria for bariatric surgery. Prior to our consult * Fn * was directed to view our educational webinar regarding the different types of bariatric surgery, including Laparoscopic Adjustment Gastric Band, Sleeve Gastrectomy, Chika-en-Y Gastric Bypass, Duodenal Switch and Revisional Bariatric procedures. In addition to the webinar, we had an extensive discussion about the various surgical options and which surgery would be the best option for * him/her * . We also extensively discussed the needed lifestyle changes for a successful fpc outcome, to include changing their dietary habits, increasing their activity and the importance of lifelong follow-up for continued education and monitoring of labs. * Mr/Ms Kacey * has been instructed to begin making healthy nutritional changes, increase her activity as tolerated and modify here eating behaviors (not skipping meals, eating slowly, etc.) as part of * his/her * pre-op nutrition program. * He/She * has been provided with educational materials as preparation for bariatric surgery. The following goals have been established and agreed upon: * -- Follow recommended nutrition guidelines to develop a healthy eating routine * -- Prepare well-balanced meals focusing on high protein / high fiber foods, eliminate high calorie / carbonated beverages * -- Establish a consistent daily eating routine, drink at least 64 ounces of water daily, make healthy food / beverage choices * -- When dining out, eat slowly and chew food well and begin a consistent exercise routine and increase ph-- When dining out, eat slowly and chew food well and begin a consistent exercise routine and increase physical activity as tolerated. * The risks and benefits of the procedure were extensively discussed with particular attention placed on the risk of anastomotic or staple line leak, risk of a pulmonary embolism, risk of bleeding risk of pulmonary complications and the need for lifelong vitamin supplementation following surgery. * We discussed that this qualifies as a major elective operation. * Fn Ln * understands that bariatric surgery is only a tool to help achieve a healthier lifestyle. * Fn Ln * will need to undergo an extensive pre-operative workup to include nutritional education and psychological clearance. * Mr/Ms Fn Ln * will proceed with a: Instructions Name Dates Details Instructions not documented Encounters Appointment; RENETTA ELIZALDE M.D. Encounter Diagnosis: Problem not documented On: 02-Jan-2017 13:30 Appointment; RENETTA ELIZALDE M.D. Encounter Diagnosis: Problem not documented On: 19-Mar-2017 10:45 Appointment; CM LEAL M.D. Encounter Diagnosis: Problem not documented On: 29-Apr-2017 10:00 Appointment; AMBULATORY, RESIDENT Encounter Diagnosis: Problem not documented On: 14-May-2017 8:00 Appointment; ARACELIS MAJANO M.D. Encounter Diagnosis: Problem not documented On: 18-Jul-2017 15:45 Appointment; MAURI FERNANDEZ M.D. Encounter Diagnosis: Problem not documented On: 04-Aug-2017 14:30 Appointment; IKER ANG M.D. Encounter Diagnosis: Problem not documented On: 05-Sep-2017 10:15 Appointment; IKER ANG M.D. Encounter Diagnosis: Problem not documented On: 11-Sep-2017 9:15 Appointment; IKER ANG M.D. Encounter Diagnosis: Problem not documented On: 29-Sep-2017 10:30 Appointment; RENETTA ELIZALDE M.D. Encounter Diagnosis: Problem not documented On: 12-Nov-2017 8:30 Appointment; ARACELIS MAJANO M.D. Encounter Diagnosis: Problem not documented On: 18-Nov-2017 11:00 Appointment; GEORGE WOODWARD M.D. Encounter Diagnosis: Problem not documented On: 28-Nov-2017 10:15 Appointment; CELINE NORRIS Encounter Diagnosis: Problem not documented On: 02-Jan-2018 13:30 Appointment; AMBULATORY, RESIDENT Encounter Diagnosis: Problem not documented On: 29-Jan-2018 13:00 Appointment; RENETTA ELIZALDE M.D. Encounter Diagnosis: Problem not documented On: 11-Feb-2018 11:00 Appointment; MANOHAR SESAY M.D. Encounter Diagnosis: Problem not documented On: 03-Mar-2018 9:00 Appointment; ARACELIS MAJANO M.D. Encounter Diagnosis: Problem not documented On: 23-Mar-2018 11:00 Appointment; MANOHAR SESAY M.D. Encounter Diagnosis: Problem not documented On: 26-Mar-2018 10:30 Appointment; MANOHAR SESAY M.D. Encounter Diagnosis: Problem not documented On: 02-Jun-2018 11:30 Appointment; RENETTA ELIZALDE M.D. Encounter Diagnosis: Problem not documented On: 10-Jun-2018 11:00 Appointment; RENETTA ELIZALDE M.D. Encounter Diagnosis: Problem not documented On: 17-Jun-2018 10:15 Appointment; PEDI, SICK Encounter Diagnosis: Problem not documented On: 26-Jun-2018 12:45 Appointment; ARACELIS MAJANO M.D. Encounter Diagnosis: Problem not documented On: 30-Jun-2018 11:00 Appointment; GEORGE WOODWARD M.D. Encounter Diagnosis: Problem not documented On: 21-Jul-2018 15:15 Appointment; RENETTA ELIZALDE M.D. Encounter Diagnosis: Problem not documented On: 29-Jul-2018 10:00 Appointment; GEORGE WOODWARD M.D. Encounter Diagnosis: Problem not documented On: 11-Aug-2018 13:00 Appointment; ABDIEL VARGAS RD Encounter Diagnosis: Problem not documented On: 14-Aug-2018 9:30 Appointment; RENETTA ELIZALDE M.D. Encounter Diagnosis: Problem not documented On: 17-Sep-2018 14:00 Appointment; GEORGE WOODWARD M.D. Encounter Diagnosis: Problem not documented On: 23-Sep-2018 11:00 Appointment; GEORGE WOODWARD M.D. Encounter Diagnosis: Problem not documented On: 04-Dec-2018 11:00 Appointment; MANOHAR SESAY M.D. Encounter Diagnosis: Problem not documented On: 08-Dec-2018 12:15 Appointment; ARACELIS MAJANO M.D. Encounter Diagnosis: Problem not documented On: 28-Dec-2018 11:00 Appointment; GEORGE WOODWARD M.D. Encounter Diagnosis: Problem not documented On: 29-Dec-2018 13:45
--- NOTE | 2019-03-01 20:34 | Diagnostic Imaging Report ---
LEFT SHOULDER X-RAY - 2 VIEWS HISTORY: Pain COMPARISON: None available. FINDINGS: Bones: No acute displaced fracture. Osseous alignment is within normal limits. Joints: The joint spaces are well-maintained. Soft tissues: The soft tissues appear unremarkable. IMPRESSION: No acute radiographic abnormality. Signed by: Dr. Angela Gross M.D. on 03/01/2019 8:31 PM
== END 2019-03-01 22:10 | disposition home or self-care (01) ==
LOC: FSED 19:39
DX: L03.313 Cellulitis of chest wall (principal); M75.102 Unspecified rotator cuff tear or rupture of left shoulder, not specified as traumatic; X50.1XXA Overexertion from prolonged static or awkward postures, initial encounter; I10 Essential (primary) hypertension; Z98.84 Bariatric surgery status; Z85.850 Personal history of malignant neoplasm of thyroid
CPT/HCPCS: 99283